=== PATIENT | male | born 1945 | race Caucasian/White ===

== ENCOUNTER 2024-02-17 21:21 | Emergency (ER) | payer MEDICARE, OTHER, SELFPAY ==
[2024-02-17 21:26] VITALS: BP 143/93
[2024-02-17 21:42] LABS: % Basophils 0.5 % (0-2); % Eosinophils 3.3 % (0-6); % Immature Granulocytes 0.1 % (0-0.5); % Lymphocytes 16.3 % (20.5-51.1); % Monocytes 12.9 % (1.7-9.3); % Neutrophils 66.9 % (42.2-75.2); Absolute Eosinophils 0.3 10^3/uL (0-0.7); Absolute Lymphocytes 1.3 10^3/uL (1.2-3.4); Absolute Neutrophils 5.4 10^3/uL (1.4-6.5); Hematocrit 39.6 % (39.0-52.0); Hemoglobin 14.2 g/dL (13.0-18.0); Mean Corp Hgb Conc. 35.9 g/dL (33.0-37.0); Mean Corpuscular Hgb 32.3 pg (27.0-31.0); Mean Corpuscular Volume 90.2 fL (80.0-94.0); Mean Platelet Volume 9.8 fL (7.4-10.4); Nucleated Red Blood Cells % 0 % (-); Platelet Count 165 10^3/uL (130-400); Red Blood Cell Count 4.39 10^6/uL (4.70-6.10); Red Cell Dist. Width 12.5 % (11.5-14.5); White Blood Cell Count 8.1 10^3/uL (4.8-10.8)
[2024-02-17 21:57] LABS: ALT (SGPT) 23 U/L (0-50); AST (SGOT) 28 U/L (17-59); Albumin 4.1 g/dl (3.5-5.0); Alkaline Phosphatase 98 U/L (38-126); Blood Urea Nitrogen 28 mg/dl (9-20); Calcium 9.1 mg/dl (8.4-10.2); Carbon Dioxide 24 mmol/L (22-30); Chloride 105 mmol/L (98-107); Glucose 127 mg/dl (70-99); Potassium 4.1 mmol/L (3.5-5.1); Sodium 140 mmol/L (135-145); Total Bilirubin 0.4 mg/dl (0.2-1.3); Total Protein 6.7 g/dl (6.3-8.2); eGFR > 60.00
[2024-02-18 01:00] VITALS: BP 128/74
[2024-02-18 02:00] VITALS: BP 131/69
[2024-02-18] MEDS: OFIRMEV 100 IV (02:33)
[2024-02-18] MEDS: VALIUM 2 MG PO (02:33)
--- NOTE | 2024-02-18 02:33 | ED.GENMED ---
History of Present Illness
General
Chief Complaint: Flank Pain
Source: family (Daughter)
Exam Limitations: none
Time Seen by Provider: 02/18/24 01:12
History of Present Illness
History of Present Illness:
78-year-old male seemed to develop low back pain starting early this morning. Very positional in nature. Points to the right lower back. No radiation of the leg. No numbness tingling or weakness. No bowel or bladder issues. No abdominal pain.
No nausea or vomiting. Seemed more comfortable this evening which prompted the daughter to call for an ambulance
Past History
Past History
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
ED Past Surgical History: Cardiac (stents X 2) and Orthopedic (Rotator cuff)
Social History
Tobacco: Non-smoker
Alcohol: None
Personal: Single
Living: with family
Review of Systems
Review of Systems
All Other Systems: Not applicable
Constitutional: Denies fever or chills
ABD/GI: Reports no symptoms
: Reports no symptoms
Phy Exam
Physical Exam
Physical Exam:
GENERAL: Alert and oriented in no apparent distress. Lying comfortably on the stretcher not sick in appearance
EYE: Orbits normal.
NECK: Supple
CARDIAC: Regular rate and rhythm without any obvious murmurs.
LUNGS: Clear breath sounds,normal
ABDOMEN: Soft, without focal tenderness or distention
NEUROLOGICAL: Alert and oriented , grossly non-focal
SKIN: Warm and dry, no rash or lesion, no discoloration, skin intact.
MUSCULOSKELETAL: No edema,no deformity.Good color. Negative straight leg raising. Clearly is in more pain with sitting up. Winces with sitting up. Points to the right lower paralumbar area towards the SI joint. No spinal tenderness
PSYCH: Normal and appropriate interaction.
Course
Orders/Labs/Results
Orders:
Orders
02/17/24 21:32
Complete Blood Count/With Diff Urgent
Comprehensive Metabolic Panel Urgent
02/18/24 01:23
IV Insert/Care/Rem.- Treatment PRN
Acetaminophen 1000MG/100Ml [Ofirmev] 1,000 mg in 100 ml IV ONCE
Acetaminophen IV Indication:: ED Narcotic Naive Pt-ONCE
Diazepam [Valium] 2 mg PO NOW STA
02/18/24 01:24
CT Abd/pel Without Iv Or Oral Urgent
Comment:
Reason For Exam: Right flank pain
02/18/24 03:33
Urinalysis Reflex To Culture Urgent
Date Specimen was Collected: 02/18/24
Time Specimen was Collected: 03:31
Abnormal Lab Results
02/17/24
21:32
RBC 4.39 L 10^6/uL
(4.70-6.10)
MCH 32.3 H pg
(27.0-31.0)
Absolute Monos (auto) 1.0 H 10^3/uL
(0.1-0.6)
Lymphocytes % 16.3 L %
(20.5-51.1)
Monocytes % 12.9 H %
(1.7-9.3)
BUN 28 H mg/dl
(9-20)
Glucose 127 H mg/dl
(70-99)
02/17/24 21:32
02/17/24 21:32
Vital Signs
Initial and Last Documented VS:
Initial Vital Signs
Temp Pulse Resp BP Pulse Ox
98.1 F 82 18 143/93 96
02/17/24 21:26 02/17/24 21:26 02/17/24 21:26 02/17/24 21:26 02/17/24 21:26
Last Documented Vital Signs
Temp Pulse Resp BP Pulse Ox
98.1 F 74 19 133/71 97
02/17/24 21:26 02/18/24 03:50 02/18/24 03:50 02/18/24 03:00 02/18/24 03:15
MDM/Problems Addressed
Differential Diagnosis Includes:
Patient symptoms clinically are very musculoskeletal in nature. Will get CT scan to evaluate the kidneys. But all signs and symptoms point to a musculoskeletal lumbar pain with pain management
*Radiology
Radiology exam reviewed: radiology read reviewed (No acute findings. Lucency in the right ilium probably incidental. Chronic compression deformity lumbar spine. Small inguinal hernias. No acute findings)
*Pulse Oximetry
Patient hypoxic: no
*Critical Care Note
Total Time (30-74mins, 75-104mins- exclusive of procedures): Not Applicable
Data Reviewed
Review of Other/Old Records Reveals: Labs, Records and Testing
Update Note
Update Note:
Patient definitely improved with Tylenol and small dose of Valium. CT scan stable. I went over this with the patient's daughter. Await urinalysis. Clinically musculoskeletal. Plan is for discharge to follow-up
ED Attending Note
-
Portions of this chart may have been created with voice recognition software.� Occasional wrong word or��sound alike� substitutions may have occurred due to the inherent limitations of voice recognition software.
Discharge Plan
Departure
Patient Disposition: Home (Routine Discharge)
Date of Disposition: 02/18/24
Time of Disposition: 03:21
Patient with high blood pressure during this ER visit?: Yes
Discharge Problem:
Right lower back pain
Instructions: Low Back Pain (DC), BLOOD PRESSURE
Prescriptions:
New
diazepam [Valium] 2 mg tablet
2 mg PO TID PRN (Reason: muscle spasm) Qty: 14 0RF
No Action
metoprolol succinate 25 mg Tablet Extended Release 24 Hr
25 mg PO DAILY
losartan 25 mg Tablet
25 mg PO HS
pantoprazole 40 mg Tablet,Delayed Release (Dr/Ec)
40 mg PO BID
fluticasone propionate 110 mcg/actuation Hfa Aerosol Inhaler
2 puff INHALATION BID PRN (Reason: sob)
fluticasone propionate 110 mcg/actuation Hfa Aerosol Inhaler
1 puff INHALATION BID PRN (Reason: sob)
omega-3 fatty acids Capsule
2,000 mg PO BID
multivitamin Capsule
1 cap PO DAILY AT 0700
levocetirizine 5 mg Tablet
5 mg PO HS
montelukast 10 mg Tablet
10 mg PO HS
sodium hyaluronate 20 mg Capsule
100 mg PO
ashwagandha root extract 500 mg Capsule
1,000 mg PO DAILY
atorvastatin 40 mg Tablet
40 mg PO QPM Qty: 90 5RF
clopidogrel 75 mg Tablet
75 mg PO DAILY Qty: 90 5RF
nitroglycerin [nitroglycerin] 0.4 mg tablet, sublingual
0.4 mg sublingual [id number] PRN (Reason: chest pain) Qty: 25 5RF
aspirin [aspirin] 81 mg tablet,chewable
81 mg PO DAILY Qty: 1 0RF
cephalexin 500 mg capsule
500 mg PO QID Qty: 39 0RF
Referrals:
Sterling Martinez MD [Family Provider] - Follow up in 2-3 days
Activity Restrictions/Additional Instructions:
Tylenol for pain Valium as a muscle relaxer. It may make him drowsy
Follow-up closely with his primary physician
Interventions
Interventions:
*Risk Screen - Suicide Last Done: 02/17/24 21:28
*General Assessment Last Done: 02/18/24 00:41
*Neglect/Abuse Screening Last Done: 02/18/24 00:41
ED- Fall Risk Assessment Last Done: 02/18/24 00:40
*ED COVID-19 Vaccine History Last Done: 02/18/24 00:42
*Nursing Disposition Last Done: 02/18/24 04:23
XL-Rgujcu-Yprlbitxdl Assessment Last Done: 02/18/24 00:40
ED-Male Genitourinary Assessment Last Done: 02/18/24 00:40
Discharge Date and Time
Discharge Date/Time: 02/18/24 04:23
Print Language: Chinese
[2024-02-18 03:00] VITALS: BP 133/71
[2024-02-18 04:09] LABS: Urine Albumin Negative (Neg - Trace); Urine Bilirubin Negative (Negative); Urine Character Clear (Clear); Urine Color Yellow; Urine Glucose Negative (Negative); Urine Ketone Negative (Negative); Urine Leukocyte Negative (Negative); Urine Nitrite Negative (Negative); Urine Occult Blood Negative (Negative); Urine Urobilinogen Negative (Neg - 1+)
== END 2024-02-18 04:23 | disposition home or self-care (01) ==
LOC: EMR 21:21
PROVIDERS: EMERGENCY PHYSICIAN Emergency Medicine; FAMILY PHYSICIAN Internal Medicine
DX: M54.50 Low back pain, unspecified (principal); I10 Essential (primary) hypertension
CPT/HCPCS: 99284; 96374; 74176; 80053; 81003; 85025

== ENCOUNTER → 2024-12-28 15:57 | Outpatient (REF) | payer MEDICARE, OTHER, SELFPAY | LOC: HWRCS 15:57 | PROVIDERS: ATTENDING PHYSICIAN Internal Medicine; FAMILY PHYSICIAN Internal Medicine | DX: I35.0 Nonrheumatic aortic (valve) stenosis (principal) | CPT/HCPCS: 93306 ==